=== PATIENT | female | born 1970 | race Caucasian/White ===

== ENCOUNTER 2017-04-17 09:20 | Inpatient (IN) | payer OTHER ==
[2017-04-17] MEDS ORDERED: Ondansetron HCl/PF 4 MG/2 ML Vial IVP PRN (10:40)
[2017-04-17] MEDS ORDERED: Fentanyl 100 MCG/2 ML VIAL SLOW IVP SCH ×2 (12:00→20:15)
[2017-04-17] MEDS ORDERED: Ampicillin/Sulbactam 3 GM in Sodium Chloride 0.9% 100 ML IVPB SCH (12:00)
[2017-04-17] MEDS: Ampicillin/Sulbactam 3 GM in Sodium Chloride 0.9% 100 ML IVPB SCH ×2 (12:16→18:26)
[2017-04-17] MEDS: Ibuprofen 600 MG TAB PO SCH ×2 (12:19→18:24)
[2017-04-17] MEDS: HYDROcodone/Acetaminophen 5/325 mg Tablet PO PRN ×2 (14:03→18:25)
[2017-04-17] MEDS ORDERED: Sodium Chloride 0.9% 10 ML ONE (20:21)
[2017-04-17] MEDS ORDERED: FLU VACC QS2017-18 36 mo. & older 0.5 ML SYRINGE IM ONE (21:00)
--- NOTE | 2017-04-17 21:52 | HP ---
DATE OF SERVICE: 04/17/2017 PRIMARY CARE PROVIDER: Dr. Ugo Maya in [place]. CHIEF COMPLAINT: Tubo-ovarian abscess. HISTORY OF PRESENT ILLNESS: At the time of presentation, Ms. Ulloa is a 47-year-old white female who presented to an outside Emergency Department with complaints of right lower quadrant pain. She had a CT scan of the pelvis, which revealed a tubo-ovarian abscess as well as an IUD in place. Patient a lso had fever over 101 at 2:30 in the morning. She had associated chills. She denies any nausea, vo miting. She denies any cardiovascular or respiratory complaints. She denies any hematuria or dysuri a. She denies any headache, numbness, or paresthesias. She denies any unusual vaginal discharge, it gail, odor, or irritation. REVIEW OF SYSTEMS: Per HPI. PAST MEDICAL HISTORY: 1. Hypertension. 2. Anxiety. 3. Patient states that she "had a flu" a week ago. PAST SURGICAL HISTORY: Negative. OBSTETRIC HISTORY: Spontaneous vaginal delivery x2, uncomplicated. GYNECOLOGIC HISTORY: Patient denies any history of abnormal Pap smears and states that her last Pap smear was many years ago. SOCIAL HISTORY: Patient is a 1/2 pack per day tobacco user. MEDICATIONS: 1. Patient takes a daily medication for hypertension. She is unsure of the name. 2. Cymbalta 30 mg p.o. daily. ALLERGIES: TRAMADOL causes increase in anxiety. PHYSICAL EXAMINATION: VITAL SIGNS: Blood pressure 123/77, pulse 98, respiratory rate 18, temperature 98.8. GENERAL: Nontoxic appearing female in no acute distress. HEENT: Normocephalic, atraumatic. LUNGS: Clear to auscultation. CARDIOVASCULAR: Regular rate and rhythm. ABDOMEN: Soft, tender in the bilateral lower quadrants, right greater than left with both guarding a nd rebound, no distention, no palpable abdominal mass. EXTREMITIES: Without cyanosis, clubbing, or edema. NEUROLOGIC: Alert and oriented x3, no focal deficits. PSYCHIATRIC: Appropriate affect. LABORATORY AND STUDIES: White blood cell count 20.0, hematocrit 42.6, platelets 306, neutrophil perc ent 85. Sodium 135, potassium 4.9, AST, ALT 15 and 11, creatinine 0.82. Urinalysis notable for no w osmani blood cells, 11-20 red blood cells, small esterase, nitrites negative. CT of abdomen and pelvis notable for tubular filled structure with enhancement in the right adnexal r egion, mild inflammatory changes, worrisome for tubo-ovarian abscess, mild dilation of the right uret er without overt hydronephrosis likely secondary to the tubo-ovarian abscess. IUD is noted in place. Small amount of free fluid in the presacral region, which is contiguous with the inflammatory staley es in the right adnexa. No CT evidence of appendicitis. ASSESSMENT AND PLAN: A 47-year-old white female with a tubo-ovarian abscess in the setting of an IUD , which is also in place. We will initiate treatment with doxycycline and Unasyn and monitor patient for improvement. Plan of care was reviewed with the patient as antibiotic therapy and pain manageme nt with monitoring for improvement in her status. Should patient worsen or not improved, removal of the IUD and/or surgery may be indicated. Questions were answered to her and her significant other's satisfaction.
[2017-04-17] MEDS: HYDROcodone/Acetaminophen 10/325 mg Tablet PO PRN (22:15)
[2017-04-18] MEDS: Ibuprofen 600 MG TAB PO SCH ×2 (01:06→06:18)
[2017-04-18] MEDS ORDERED: Sodium Chloride 0.9% 0 ML ONE (01:10)
[2017-04-18] MEDS ORDERED: Sodium Chloride 0.9% 10 ML ONE ×3 (01:16→11:16)
[2017-04-18] MEDS: Ampicillin/Sulbactam 3 GM in Sodium Chloride 0.9% 100 ML IVPB SCH ×4 (01:20→18:00)
[2017-04-18] MEDS: HYDROcodone/Acetaminophen 10/325 mg Tablet PO PRN (02:19)
[2017-04-18] MEDS: HYDROcodone/Acetaminophen 5/325 mg Tablet PO PRN ×2 (03:01→10:17)
[2017-04-18 03:12] VITALS: BMI 25.0
[2017-04-18 05:55] LABS: #Basophils 0.1 thou/uL (0.0-0.2); #Eosinphils 0.1 thou/uL (0.0-0.7); #Lymphocytes 1.1 thou/uL (1.20-3.40); #Monocytes 0.9 thou/uL (0.11-0.59); #Neutrophils 12.8 thou/uL (1.40-6.50); %Basophils 0.4 % (0.0-1.0); %Eosinophils 0.8 % (0.0-10.0); %Lymphocytes 7.4 % (21.0-51.0); %Monocytes 5.9 % (0.0-10.0); Hematocrit 34.3 % (36.0-47.0); Mean Platelet Volume 6.4 fL (7.4-10.4)
[2017-04-18 06:14] LABS: Anion Gap 10 mmol/L (10-20); BUN (Urea Nitrogen) 5 mg/dL (7.0-18.7); Calc. Creatinine Clearance 113 mL/min (70-130); Calcium 8.5 mg/dL (7.8-10.44); Carbon Dioxide 23 mmol/L (22-29); Chloride 106 mmol/L (98-107); Estimated GFR-MDRD Greater than 90
[2017-04-18] MEDS: HYDROcodone/Acetaminophen 7.5/325 mg Tablet PO PRN (06:18)
--- NOTE | 2017-04-18 08:14 | PDOC.EVN ---
Event Note - Event Note Event Note: S: Pt reports imporvement in pain, min flatus, increased abd distension.. At[place]ony PO, no N/V. Pain is more diffuse per pt O: Vital Signs (24 hours) Temp Pulse Resp BP BP Pulse Ox 04/18/17 07:56 98.0 F 92 24 H 98 04/18/17 01:00 98.0 F 92 24 H 126/82 99 04/17/17 20:30 98.5 F 100 20 102/63 97 04/17/17 17:09 99.5 F 110 H 20 95/52 L 04/17/17 12:59 103.1 F H 117 H 16 95 04/17/17 12:30 103.1 F H 04/17/17 12:26 117 H 16 144/85 H 95 04/17/17 12:20 112 H 22 H 145/86 H 97 04/17/17 12:00 98 04/17/17 11:45 99.0 F 106 H 20 172/93 H 96 Laboratory Results - last 24 hr 04/18/17 04/18/17 05:22 05:22 WBC 15.0 H RBC 3.30 L Hgb 11.5 L Hct 34.3 L MCV 104.0 H MCH 34.9 H MCHC 33.6 RDW 11.9 Plt Count 286 MPV 6.4 L Neutrophils % 85.6 H Lymphocytes % 7.4 L Monocytes % 5.9 Eosinophils % 0.8 Basophils % 0.4 Neutrophils # 12.8 H Lymphocytes # 1.1 L Monocytes # 0.9 H Eosinophils # 0.1 Basophils # 0.1 Sodium 136 Potassium 3.3 L Chloride 106 Carbon Dioxide 23 Anion Gap 10 BUN 5 L Creatinine 0.66 Estimated GFR (MDRD) Greater than 90 Glucose 107 H Calcium 8.5 Gen. NAD Resp. unlabored CV. RRR Abd. Soft, min distension, tender with guarding no rebound A/P: 47 yo female with TOA on right. Afebrile on Unasyn and doxy since 12p yesterday. Distension mildly increased and pain more diffuse although overall decreased * Cont abx therapy * Serial exams CHTN. Pt to get name of her HTN med sso we can start it here
[2017-04-18] MEDS: Valsartan 80 MG TAB PO SCH (09:23)
[2017-04-18] MEDS: Potassium Chloride 20 MEQ, Admixture Fee 1 EACH in Lactated Ringer's 1,000 ML IV SCH ×2 (09:51→15:14)
[2017-04-18] MEDS: Morphine PF 1 MG/ML SYR IV PRN ×2 (11:37→15:15)
--- NOTE | 2017-04-18 13:36 | PRG ---
DATE OF SERVICE: 04/18/2017 TIME OF SERVICE: 1200 SUBJECTIVE: The patient reports that her pain has increased and she now has nausea and vomiting. Sh e feels like her distention's increased. OBJECTIVE: VITAL SIGNS: The patient remains afebrile. Her pulse is up to 92, blood pressure is 124/81 as she h as begun on her valsartan, temperature is 98.1. ABDOMEN: Moderately distended. She has guarding in all 4 quadrants and hypoactive bowel sounds. IMPRESSION: Worsening abdominal exam with fever, elevated white count, CT scan appearance consistent with tubo-ovarian abscess. PLAN: We will go ahead and plan to proceed with diagnostic laparoscopy, possible right salpingo-ooph orectomy, anticipated washout and drainage of right pelvic abscess and removal of IUD (IUD is greater than [address] old). [address] scan states that the appendix appears normal. However, I have discussed the patient's case with Dr. Matias and he will be available if needed intraoperatively. Because the pat ient had hash browns this morning at 0800 and the patient's condition while progressed is not emergen t, Anesthesia prefers to wait until approximately 1630 for surgery due to n.p.o. requirements. We wi ll continue Unasyn, doxycycline, and Flagyl.
[2017-04-18] MEDS: metroNIDAZOLE 500 MG in Premix Bag 1 BAG IVPB SCH ×2 (14:03→21:26)
[2017-04-18] MEDS ORDERED: Glycopyrrolate 0.2 MG/ML 5 ML SYRINGE ONE (14:10)
[2017-04-18] MEDS ORDERED: Ondansetron HCl/PF 4 MG/2 ML Vial ONE (14:10)
[2017-04-18] MEDS ORDERED: Ketorolac Tromethamine 30 MG/ML VIAL ONE (14:10)
[2017-04-18] MEDS ORDERED: Propofol 200 MG/20 ML VIAL ONE (14:10)
[2017-04-18] MEDS ORDERED: Dexamethasone 20 MG/5 ML VIAL ONE (14:10)
[2017-04-18] MEDS ORDERED: Lidocaine 1% PF 5 ML VIAL ONE (14:10)
[2017-04-18] MEDS ORDERED: Midazolam HCl 2 mg/2 ml Vial ONE (16:20)
[2017-04-18] MEDS ORDERED: Bupivacaine/Epinephrine 0.25% 30 ML VIAL ONE (16:38)
[2017-04-18] MEDS ORDERED: Fentanyl 250 MCG/5 ML VIAL ONE (17:05)
[2017-04-18] MEDS ORDERED: Ampicillin/Sulbactam 3 GM VIAL ONE (18:03)
[2017-04-18] MEDS ORDERED: Fentanyl 100 MCG/2 ML VIAL ONE ×3 (18:47→19:26)
[2017-04-18] MEDS ORDERED: Promethazine HCl 25 MG/ML VIAL IM PRN ×2 (18:54→20:03)
[2017-04-18] MEDS ORDERED: Ondansetron HCl/PF 4 MG/2 ML Vial IVP PRN (18:54)
[2017-04-18] MEDS ORDERED: Promethazine HCl 25 MG/ML VIAL SLOW IVP PRN (18:54)
[2017-04-18] MEDS ORDERED: Morphine 4 MG/ML Carpuject SLOW IVP PRN (20:03)
--- NOTE | 2017-04-19 00:26 | OP ---
DATE OF PROCEDURE: 04/18/2017 PREOPERATIVE DIAGNOSES: Peritonitis with right tubo-ovarian abscess, possible appendicitis and retai jason intrauterine device. POSTOPERATIVE DIAGNOSIS: Peritonitis with right tubo-ovarian abscess, possible appendicitis and yahaira ined intrauterine device. PROCEDURE: Laparoscopic right salpingectomy and drainage of abscess with laparoscopic appendectomy b y Dr. Saeed Matias, copper intrauterine device removal. SURGEON: Bill Disla M.D. (Dr. Saeed Matias for appendectomy). ANESTHESIA: General endotracheal. ESTIMATED BLOOD LOSS: 25-50 mL intraoperatively. SPECIMENS: Right partial fallopian tube and appendix. DRAINS: Mendoza to gravity with YOON drain out, 5 mm left trocar site. MEDICATIONS: Continued IV antibiotics as started preoperatively. DVT PROPHYLAXIS: SCDs. OPERATIVE FINDINGS: 1. Diffuse peritonitis upon laparoscopic entry into the pelvic cavity. 2. Diffuse adhesions with seropurulent fluid in the pelvis aspirated and sent for culture. 3. Adhesions of the appendix into the cul-de-sac of Phi with edematous appendix with purulence o n the surface. 4. Matted down hydrosalpinx with dense adhesions on the right. 5. Hemostasis with clear urine and correct counts at the end of the procedure. DISPOSITION: Recovery room and to floor in good condition. DESCRIPTION OF OPERATIVE PROCEDURE: After obtaining proper informed consent, the patient was taken t o the operating room where general endotracheal anesthesia was achieved without difficulty. Patient prepped and draped in dorsal lithotomy in Tim stirrups. Side hand speculum placed in vagina, cervi x identified. IUD string visualized, grasped, and copper IUD removed in its entirety without evidenc e of fracture or loss of integrity. It was disposed of after being grossly identified and inspected. Hulka manipulator placed inside the uterus, and tenaculum and speculum removed. Mendoza catheter oliver aroldo with clear urine noted. Dust Box Worker changed his gloves and turned his attention to the abdominal po rtion of the procedure. A 5 mL of Marcaine injected at the base of umbilicus. A 5 mm skin incision made and Veress needle placed inside the abdominal cavity and confirmation of entry into the peritone al cavity via saline drop test. Insufflation carried out, carbon dioxide a max pressure of 15. Afte r about 3.5 liters of insufflation pressure of 15 was reached, the Veress needle was removed. Optivi ew trocar was used for direct insertion with confirmation of no trauma to the underlying viscera. Th e patient was placed in steep Trendelenburg position and a 5 mm trocar placed left lateral to the epi gastric vessels. Pelvic organs were mobilized and findings as noted in the operative findings were n oted. Suction was carried out into a trap for aerobe and anaerobic culture and suction irrigation ca rried out in the pelvis. The appendix was identified and noted to be enlarged and edematous with jose luis e purulence on the cervix. It was felt this was unlikely to be the primary source of the infection; however, with its close vicinity to the tubo-ovarian abscess, decision was made to go ahead and have this removed. Dr. Matias came to the operating room as he had been previously consulted and removed the appendix. Please see his note. This is after placing a 12 mm suprapubic trocars 2 cm above the symphysis pubis in the midline. Using atraumatic graspers, the right middle and distal aspects of th e fallopian tube were freed up. Purulent material was noted coming from these and hydrosalpinx was n oted. Using the LigaSure, the portions of fallopian tube that can be freed up were coagulated, trans ected and excised and removed through the 12 mm trocar and sent for pathologic analysis. The ovary w as stuck further down on the fossa of the ureter on that side. It did not appear to be grossly absce ssed. Copious suction irrigation was carried out and hemostasis was achieved with coagulation. Deci lydia was made to place a YOON drain. This was introduced in the abdominal cavity and pulled out throug h the 5 mm left trocar. Sasha was placed across the raw surfaces secondary to bleeding related to t he inflammation. No gross active arterial bleeding was noted upon the end of the procedure. Abdomen was desufflated with carbon dioxide. Trocars were closed with a UR-5 12 mm trocar and the skin reap proximated using 4-0 Monocryl x2. Suture was used to tie the YOON drain in place on the patient's left trocar site. Hulka manipulator was removed. Mendoza left in situ. The patient was awakened, extubat ed, and taken to the recovery room in good condition.
--- NOTE | 2017-04-19 00:33 | OP ---
DATE OF OPERATION: 04/18/2017 PREOPERATIVE DIAGNOSIS: Tubo-ovarian abscess refractory to nonsurgical management. POSTOPERATIVE DIAGNOSIS: Secondary involved appendix, severely inflamed, probably secondarily. PROCEDURE: Intraoperative consultation provided by Dr. Bill Disla, asked me to view the appendix. Laparoscopic appendectomy performed by Dr. Matias. DRAINS: Tubo-ovarian abscess and drains per Dr. Disla. ANESTHESIA: General anesthesia. DESCRIPTION OF PROCEDURE: I was invited to come to the operating room to evaluate the patient's appe ndix. Dr. Disla has evaluated right tubo-ovarian abscess. The appendix was thickened and inflamed with the fibrinopurulent exudate over it. Mesoappendix was taken down with a LigaSure. The stump of the appendix was divided the cecal base with Endo blue load MIKE stapler. Stapled cecal stump was he mostatic and secure as the appendix was removed through the 12-port and submitted to pathology. Dr. Disla then completed the remainder of the procedure.
[2017-04-19] MEDS: Ketorolac Tromethamine 30 MG/ML VIAL IVP SCH ×4 (00:43→17:24)
[2017-04-19] MEDS: Acetaminophen 1,000 MG in Premix Bag 1 BAG IVPB SCH ×4 (00:50→17:25)
[2017-04-19] MEDS ORDERED: Morphine 4 MG/ML VIAL SLOW IVP PRN (01:22)
[2017-04-19] MEDS: Morphine PF 1 MG/ML SYR IVP PRN ×4 (01:28→19:36)
[2017-04-19] MEDS: Ampicillin/Sulbactam 3 GM in Sodium Chloride 0.9% 100 ML IVPB SCH ×4 (01:34→17:25)
[2017-04-19 06:19] LABS: Anion Gap 12 mmol/L (10-20); BUN (Urea Nitrogen) 8 mg/dL (7.0-18.7); Calc. Creatinine Clearance 110 mL/min (70-130); Calcium 8.6 mg/dL (7.8-10.44); Carbon Dioxide 22 mmol/L (22-29); Chloride 108 mmol/L (98-107); Estimated GFR-MDRD Greater than 90
[2017-04-19 06:32] LABS: Band 7 % (5-11); Hematocrit 33.8 % (36.0-47.0); Mean Platelet Volume 6.7 fL (7.4-10.4); Neutrophil 91 % (42-75); Red Blood Cell (RBC) Count 3.19 mill/uL (4.20-5.40); White Blood Cell (WBC) Count 15.1 thou/uL (4.8-10.8)
[2017-04-19] MEDS: Potassium Chloride 20 MEQ, Admixture Fee 1 EACH in Lactated Ringer's 1,000 ML IV SCH ×4 (06:42→22:59)
[2017-04-19] MEDS: metroNIDAZOLE 500 MG in Premix Bag 1 BAG IVPB SCH ×3 (06:44→22:59)
--- NOTE | 2017-04-19 09:01 | PRG ---
DATE OF SERVICE: 04/19/2017 TIME OF SERVICE: 07:15 SUBJECTIVE: Patient is sitting up in bed stating that she feels much better than she did yesterday. OBJECTIVE: VITAL SIGNS: Postoperative T-max is 99.5, blood pressure 118/72, pulse 85. HEENT: Within normal limits. LUNGS: Clear to auscultation bilaterally. HEART: Regular rate and rhythm. ABDOMEN: Softer than preoperatively. Still mild amount of guarding in all 4 quadrants. Bowel sound s are slightly decreased, but positive. YOON drain is well secured and in place. All trocar points ar e dry and her perineum is dry. EXTREMITIES: Without clubbing, cyanosis or edema. The patient had good urine output overnight and Mendoza has been discontinued. She is tolerating clear liquid p.o. YOON drain put out 90 mL of serosanguineous fluid in the shift postoperatively. Hematocr it this morning is 34% with a white count of 15,000, which is stable. Gram stain was positive for RB Cs and WBCs. No organisms noted from the pelvic fluid that was removed at the time of surgery. IMPRESSION: A 47-year-old with right tubo-ovarian abscess, now status post right salpingectomy, appe ndectomy, and YOON drain placement. PLAN: Continue Unasyn, Flagyl and doxycycline IV with YOON drain. Anticipate YOON drain removal when lo w output status is achieved and anticipate discharge home on 10-14 days total oral antibiotics after patiently clinically improves and after discontinuing IV antibiotics. The patient is also status pos t a copper IUD removal, the copper IUD is approximately 15 years old.
[2017-04-19] MEDS: Valsartan 80 MG TAB PO SCH (09:22)
[2017-04-19] MEDS: HYDROcodone/Acetaminophen 5/325 mg Tablet PO PRN (09:54)
--- NOTE | 2017-04-19 14:03 | PRG ---
DATE OR SERVICE: 04/19/2017 Ms. Ulloa is doing well today. The pain she was having preoperatively has resolved. Now she is havi ng postoperative incisional pain. YOON drain is serous cloudy. She is afebrile. Her abdomen is soft. The patient is doing well after laparoscopic appendectomy and right salpingo-oophorectomy for TOA. At this point, I will see her as needed. She will follow up with Dr. Disla as needed. Please call if I can be of any assistance.
[2017-04-20] MEDS: Morphine PF 1 MG/ML SYR IVP PRN ×2 (00:08→05:04)
[2017-04-20] MEDS: Ketorolac Tromethamine 30 MG/ML VIAL IVP SCH ×4 (00:08→18:29)
[2017-04-20] MEDS: Acetaminophen 1,000 MG in Premix Bag 1 BAG IVPB SCH (00:09)
[2017-04-20] MEDS: Ampicillin/Sulbactam 3 GM in Sodium Chloride 0.9% 100 ML IVPB SCH ×4 (00:46→18:26)
[2017-04-20 04:57] LABS: Hematocrit 30.8 % (36.0-47.0); Mean Platelet Volume 6.4 fL (7.4-10.4); Red Blood Cell (RBC) Count 2.95 mill/uL (4.20-5.40); White Blood Cell (WBC) Count 14.3 thou/uL (4.8-10.8)
[2017-04-20] MEDS: metroNIDAZOLE 500 MG in Premix Bag 1 BAG IVPB SCH ×3 (05:01→21:33)
[2017-04-20] MEDS: Valsartan 80 MG TAB PO SCH (09:43)
[2017-04-20] MEDS: HYDROcodone/Acetaminophen 7.5/325 mg Tablet PO PRN ×3 (09:44→22:05)
--- NOTE | 2017-04-20 10:53 | PRG ---
DATE OF SERVICE: 04/20/2017 TIME OF SERVICE: 8:15 a.m. SUBJECTIVE: The patient is doing well this morning. She reports her pain is well controlled with her pain medication. She is ambulating in the halls without difficulty and tolerating p.o. She is able to urinate without difficulty, but has not had a bowel movement. She is passing gas. She feels like she is improving. OBJECTIVE: VITAL SIGNS: Temperature 97.7, blood pressure 140/80, pulse 72, respiratory rate 20, O2 saturation 98% on room air. GENERAL: Awake, alert, in no acute distress. CHEST: Nonlabored breathing. ABDOMEN: Soft, appropriately tender to palpation, nondistended, no rebound or guarding. Incisions appear well approximated with no evidence of infection. YOON drain is in place. EXTREMITIES: No cyanosis, clubbing or edema. YOON drain with 60 mL of serosanguineous drainage in the last 24 hours. LABORATORY DATA: WBC 14.3, hemoglobin 10.4, hematocrit 30.8, platelets 313, 000. ASSESSMENT AND PLAN: A 47-year-old status post laparoscopic right salpingectomy and appendectomy for tubo-ovarian abscess with YOON drain placement. She is on Unasyn, Flagyl and doxycycline intravenously. We will continue the intravenous antibiotics. The YOON drain will remain in place until there is low output at which time it will be removed. We will continue to monitor at this time. [facility] SYSTEMDeena
[2017-04-20] MEDS: Potassium Chloride 20 MEQ, Admixture Fee 1 EACH in Lactated Ringer's 1,000 ML IV SCH ×2 (11:29→18:26)
[2017-04-20] MEDS: HYDROcodone/Acetaminophen 5/325 mg Tablet PO PRN (18:29)
[2017-04-21] MEDS: Ampicillin/Sulbactam 3 GM in Sodium Chloride 0.9% 100 ML IVPB SCH ×4 (00:17→18:19)
[2017-04-21] MEDS: Ketorolac Tromethamine 30 MG/ML VIAL IVP SCH ×3 (00:17→12:49)
[2017-04-21] MEDS: HYDROcodone/Acetaminophen 7.5/325 mg Tablet PO PRN ×6 (02:08→22:25)
[2017-04-21] MEDS: metroNIDAZOLE 500 MG in Premix Bag 1 BAG IVPB SCH ×3 (05:16→22:25)
[2017-04-21] MEDS: Potassium Chloride 20 MEQ, Admixture Fee 1 EACH in Lactated Ringer's 1,000 ML IV SCH ×3 (08:38→18:20)
[2017-04-21] MEDS: Valsartan 80 MG TAB PO SCH (09:45)
[2017-04-21] MEDS: Ibuprofen 800 MG TAB PO PRN ×2 (13:27→22:25)
[2017-04-22] MEDS: Ampicillin/Sulbactam 3 GM in Sodium Chloride 0.9% 100 ML IVPB SCH ×2 (00:51→06:30)
[2017-04-22] MEDS: HYDROcodone/Acetaminophen 7.5/325 mg Tablet PO PRN ×2 (02:28→06:32)
[2017-04-22] MEDS: Potassium Chloride 20 MEQ, Admixture Fee 1 EACH in Lactated Ringer's 1,000 ML IV SCH ×2 (02:30→10:59)
[2017-04-22] MEDS: metroNIDAZOLE 500 MG in Premix Bag 1 BAG IVPB SCH (05:22)
[2017-04-22 07:39] VITALS: BP 157/93; TEMP 98.3
[2017-04-22] MEDS ORDERED: Iopamidol 370 76% 100 ML VIAL ONE (07:51)
[2017-04-22] MEDS: Valsartan 80 MG TAB PO SCH (08:41)
[2017-04-22 08:44] LABS: #Eosinphils 0.3 thou/uL (0.0-0.7); #Lymphocytes 2.2 thou/uL (1.20-3.40); #Monocytes 1.4 thou/uL (0.11-0.59); %Basophils 0.4 % (0.0-1.0); %Eosinophils 2.1 % (0.0-10.0); %Lymphocytes 15.4 % (21.0-51.0); Hematocrit 39.5 % (36.0-47.0); Red Blood Cell (RBC) Count 3.79 mill/uL (4.20-5.40); White Blood Cell (WBC) Count 13.9 thou/uL (4.8-10.8)
[2017-04-22 09:00] LABS: Anion Gap 13 mmol/L (10-20); BUN (Urea Nitrogen) 4 mg/dL (7.0-18.7); Calc. Creatinine Clearance 119 mL/min (70-130); Calcium 9.1 mg/dL (7.8-10.44); Carbon Dioxide 23 mmol/L (22-29); Chloride 104 mmol/L (98-107); Estimated GFR-MDRD Greater than 90
--- NOTE | 2017-04-22 10:19 | PRG ---
DATE OF SERVICE: 04/21/2017 SUBJECTIVE: The patient is doing well, tolerated p.o., has had bowel movement, has had passage of ga s. She is not having any nausea or vomiting. She has good pain control. She is up and ambulating w ell. OBJECTIVE: VITAL SIGNS: Within normal limits. The patient is afebrile. GENERAL: Nontoxic appearing female. No acute distress. LUNGS: Respirations are unlabored. ABDOMEN: Soft, nontender, nondistended, no rebound, no guarding. Incisions are clean, dry and intac t. YOON drain is in place, and per Dr. Disla is in the posterior cul-de-sac. Serosanguineous drainag e is apparent in the drain. Pathology is pending. ASSESSMENT AND PLAN: Postoperative day #3 status post laparoscopy for tubo-ovarian abscess. The pat ient has salpingectomy by Dr. Disla and appendectomy by Dr. Matias. The patient is doing very well clinically, but her YOON drain had output of 50 mL in a 12-hour shift. The patient will be continued o n IV antibiotics for the duration of her stay as an inpatient. We will continue her IV pain medicati on and maintain her on p.o. pain medications only. We will continue to monitor for output from the J P drain and evaluated for discharge tomorrow.
[2017-04-22] MEDS: Ibuprofen 800 MG TAB PO PRN (10:59)
[2017-04-22] MEDS: HYDROcodone/Acetaminophen 5/325 mg Tablet PO PRN (10:59)
--- NOTE | 2017-04-22 14:05 | CT ---
CT ABDOMEN AND PELVIS WITH IV CONTRAST: Date: 04-22-17 History: Abdominal pain since Friday. Fever. Comparison: 04-17-17 FINDINGS: There has been interval development of small bilateral pleural effusions, larger in size on the right with associated bibasilar atelectasis. Remote left sided rib fractures are again seen. The liver, spleen, pancreas, bilateral adrenal glands, kidneys, abdominal aorta, opacified bowel, and urinary bladder demonstrate a normal CT appearance. There has been interval placement of a pelvic drainage catheter entering via the left anterolateral a spect of the abdomen coursing across midline, subsequently into the mid portion of the mid pelvis. The larger tubular fluid filled structure in the right adnexal region is much smaller in size, howeve r, there is now a very small curvilinear fluid collection with enhancing wall seen posterior to the u terus and extending to the right hemipelvis. This is very small in size and is not percutaneously acc essible for placement of a drainage catheter. The largest portion of this fluid collection measures a pproximately 2.3 cm. The intrauterine contraceptive device has been removed. There is a minimal amount of fluid seen within the pelvis with persistent presacral inflammatory esteves ges seen. There is a curvilinear area of increased density seen at the cecal apex which may be related to recen t appendectomy. IMPRESSION: 1. Interval placement of a left sided drainage catheter with small curvilinear fluid collection with enhancing wall seen posterior to the uterus in the region of the cul-de-sac and in the right adnexal region which may be related to small abscess collection in this region. No percutaneously accessible collection is present. Greatest dimension of the largest portion of the collecting measures 2.3 cm. 2. Interval removal of the intrauterine contraceptive device. 3. Tiny amount of fluid in the pelvis with associated presacral inflammatory changes present. 4. Evidence of appendectomy. 5. Interval development of small bilateral pleural effusions and bibasilar atelectasis. POS: DUNCAN
--- NOTE | 2017-04-23 05:08 | DIS ---
DATE OF ADMISSION: 04/17/2017 DATE OF DISCHARGE: 04/22/2017 DIAGNOSES: 1. Tubo-ovarian abscess. 2. Acute appendicitis. 3. Acute salpingitis. PROCEDURES: Laparoscopic right salpingectomy, appendectomy, IUD removal. CONSULTS: Saeed Matias M.D. HOSPITAL COURSE: The patient was admitted on 04/17/2017 for suspected tubo- ovarian abscess after presenting with right lower quadrant pain. She was started on IV antibiotics; however on hospital day #1, her symptoms worsened with worsening distention, pain, nausea, and vomiting. She was taken to the operating room for the above-mentioned procedures and was found to have appendicitis with pelvic abscess and salpingitis. A YOON drain was placed at that time. She improved over the course of the next several days on IV Zosyn, doxycycline, and Flagyl. She continued to have a small amount of output from her drain, so CT scan was repeated. It was found to have a 2-cm abscess in the pelvis, but no large fluid collections or other abnormalities in the abdomen. She was noted to have small bilateral pleural effusions, but was asymptomatic. The drain was removed, and the patient was feeling well enough to go home, so she was discharged home on hospital day #5. MEDICATIONS: The patient was discharged with prescriptions for Augmentin XR and Flagyl to be taken twice daily for 10 days. She was also given a prescription for ibuprofen and Tylenol No. 3. FOLLOWUP: With Dr. Disla in 2 weeks. INSTRUCTIONS: No heavy lifting until she is seen for her postop appointment. She is to call the clinic or come to the emergency room for worsening pain, fever, or other concerns. BON
== END 2017-04-22 13:18 | disposition home or self-care (01) | DRG 742 ==
LOC: ERS 09:20 → 3SE 11:42
PROVIDERS: ADMIT Obstetrics & Gynecology Obstetrics; ATTEND Obstetrics & Gynecology Obstetrics
PROC: 0UB54ZZ Excision of Right Fallopian Tube, Percutaneous Endoscopic Approach (ICD-10-PCS; principal; 2017-04-18)
PROC: 0DTJ4ZZ Resection of Appendix, Percutaneous Endoscopic Approach (ICD-10-PCS; 2017-04-18)
PROC: 0W9J40Z Drainage of Pelvic Cavity with Drainage Device, Percutaneous Endoscopic Approach (ICD-10-PCS; 2017-04-18)
PROC: 0UPD7HZ Removal of Contraceptive Device from Uterus and Cervix, Via Natural or Artificial Opening (ICD-10-PCS; 2017-04-18)
DX: N70.03 Acute salpingitis and oophoritis (principal); K35.3 Acute appendicitis with localized peritonitis; N73.9 Female pelvic inflammatory disease, unspecified; Z30.432 Encounter for removal of intrauterine contraceptive device; I10 Essential (primary) hypertension; F41.9 Anxiety disorder, unspecified; F17.210 Nicotine dependence, cigarettes, uncomplicated; N70.11 Chronic salpingitis
CPT/HCPCS: 36415; 74177; 80048; 85025; 85027; 87040; 87070; 87205; 88304; 88305; 96365; A4216; J0131; J0295; J1100; J1885; J2001; J2250; J2274; J2405; J2704; J3010; J3480; J7050; J7120